=== PATIENT | male | born 1975 | race Caucasian/White ===

== ENCOUNTER 2019-05-23 19:56 | Emergency (ER) | payer OTHER ==
[~2019-05-23] VITALS: Ht 175.2 cm; Wt 72.6 kg
[2019-05-23] MEDS ORDERED: CYCLOBENZAPRINE5 M3 PO (21:28)
[2019-05-23] MEDS ORDERED: NAPROSYN500 MG PO (21:28)
[2019-05-23] MEDS ORDERED: MEDROL DOSEPAK4 MG PO (21:28)
== END 2019-05-23 20:40 | disposition home or self-care (01) ==
LOC: ED 19:56
DX: S46.911A Strain of unspecified muscle, fascia and tendon at shoulder and upper arm level, right arm, initial encounter (principal); M54.2 Cervicalgia; X50.0XXA Overexertion from strenuous movement or load, initial encounter; Y93.89 Activity, other specified; Y92.89 Other specified places as the place of occurrence of the external cause; Y99.8 Other external cause status

== ENCOUNTER 2021-07-01 21:10 | Emergency (ER) | payer OTHER ==
[~2021-07-01 21:10] MED LIST: CYCLOBENZAPRINE5 M3 PO; MEDROL DOSEPAK4 MG PO; NAPROSYN500 MG PO
== END 2021-07-01 22:00 | disposition left against medical advice (07) ==
LOC: ED 21:10
DX: S61.419A Laceration without foreign body of unspecified hand, initial encounter (principal); Z53.21 Procedure and treatment not carried out due to patient leaving prior to being seen by health care provider; X58.XXXA Exposure to other specified factors, initial encounter; Y93.89 Activity, other specified; Y92.89 Other specified places as the place of occurrence of the external cause; Y99.8 Other external cause status

== ENCOUNTER 2024-11-07 20:08 | Emergency (ER) | payer OTHER ==
[~2024-11-07] VITALS: Ht 175.2 cm; Wt 81.6 kg
[2024-11-07] MEDS ORDERED: NAPROSYN500 MG PO (21:17)
== END 2024-11-07 21:23 | disposition home or self-care (01) ==
LOC: ED 20:08
DX: G89.29 Other chronic pain (principal); M25.511 Pain in right shoulder; Z88.5 Allergy status to narcotic agent